=== PATIENT | female | born 1955 | race Caucasian/White ===

== ENCOUNTER 2022-10-11 00:39 | Inpatient (IN) | payer MEDICARE, SELFPAY ==
[2022-10-11] VITALS (27 sets, daily range): BP systolic 90–158; BP diastolic 53–99; PULSE 70–93; RESP 12–22; TEMP 36.1–37.7; O2SAT 90–98; BMI 25.8; BMI 27.1
--- NOTE | 2022-10-11 00:43 | XRR_ITS ---
PROCEDURE INFORMATION: Exam: XR Left Hip Exam date and time: 10/11/2022 1:48 AM Age: 67 years old Clinical indication: Injury or trauma; Blunt trauma (contusions or hematomas); Patient HX: Fall this a. M. C/O left hip pain. TECHNIQUE: Imaging protocol: Radiologic exam of the Left hip. Views: 2 or 3 views hip with pelvis when performed. COMPARISON: No relevant prior studies available. FINDINGS: Bones/joints: There is an acute transverse impacted fracture of the left femoral neck. Soft tissues: Unremarkable. XR/XR hip LT 2-3V wo/w pel* [id number] IMPRESSION: Acute impacted transverse fracture of left femoral neck.
--- NOTE | 2022-10-11 00:50 | ED_ITS ---
HPI - Fall General: Chief Complaint: Fall Stated Complaint: FALL Time Seen by Provider: 10/11/22 00:43 Source: patient and EMS Mode of arrival: EMS Limitations: no limitations History of Present Illness: 67-year-old female who is here by EMS after a fall she states she was walking backwards fell on her porch landed on her left hip she states that she has been having left-sided hip pain since then she has not been able to ambulate has pain with movement states her pain currently is an 8 out of 10 denies hitting her head denies hitting her neck Associated symptoms-after fall: Denies abdominal pain, chest pain, headache(s) or neck pain Review of Systems Const: Denies: fever(s), chills, body aches or change in appetite Eyes: Denies: blurry vision or eye discomfort ENMT: Denies: throat pain or dental pain Card: Denies: chest pain Resp: Denies: dyspnea GI: Denies: abdominal pain, nausea, vomiting or diarrhea : Denies: dysuria Musc: Reports: extremity pain; Denies: neck pain or back pain Skin/Breast: Denies: rash Neuro: Denies: headache(s) Psych: Denies: depression Minor/Lymph: Denies: easy bruising All/Imm: Denies: urticaria PFSH ED PFSH: Medical History (Updated 10/11/22 @ 01:39 by Charlotte Florence MD) No pertinent past medical history Social History (Updated 10/11/22 @ 00:51 by Charlotte Florence MD) Substance/Drug Use: never Physical Exam Const: COMMON NORMALS: no acute distress, patient oriented x3 and healthy appearing HENMT: COMMON NORMALS: normocephalic and atraumatic HEAD & SCALP: normocephalic and atraumatic Eye: COMMON NORMALS: Equal, round and reactive pupils present and EOMs intact bilaterally PUPIL: Yes Equal, round and reactive pupils present Neck/C-Spine: COMMON NORMALS: full ROM and supple Chest: COMMONS NORMALS: normal inspection of the chest and normal palpation of entire chest wall Resp: COMMON NORMALS: normal respiratory effort, No retractions, No use of accessory muscles and clear to auscultation bilaterally AUSCULTATION: clear to auscultation bilaterally Cardio: COMMON NORMALS: regular rate, regular rhythm and No murmurs present (Cardio) RATE: regular rate RHYTHM: regular rhythm GI: COMMON NORMALS: Normal to inspection, nondistended, normoactive bowel sounds present, Soft to palpation, non-tender and no masses PALPATION: Yes Soft to palpation Extremity: NARRATIVE EXTREMITY EXAM: Tenderness to left hip distal pulses intact Neuro: COMMON NORMALS: patient oriented x3, moves all extremities and no focal motor deficits Psych: COMMON NORMALS: mental status grossly normal, Normal thought process present and cooperative THOUGHT PROCESS: Normal thought process present Skin: COMMON NORMALS: no rashes or lesions noted and no wounds GENERAL SKIN EXAM: no rashes or lesions noted Course Vital Signs: Vital signs: Vital Signs Temperature 97.0 F L 10/11/22 00:42 Pulse Rate 93 10/11/22 00:42 Respiratory Rate 17 10/11/22 01:05 Blood Pressure 158/92 10/11/22 00:42 Pulse Oximetry 98 10/11/22 01:05 Oxygen Delivery Me thod 10/11/22 00:42 MDM - Fall Medical Decision Making Patient presents with a left hip fracture after a fall. Patient has no other signs of injury spoke to hospitalist Dr. Malcolm who is admitting also spoke to Dr. Bro orthopedics who is consulted. Lab Data : 10/11/22 00:53 10/11/22 00:53 Radiology Impressions Hip/Pelvis X-Ray 10/11/22 00:43 IMPRESSION: Acute impacted transverse fracture of left femoral neck. Chest X-Ray 10/11/22 00:56 IMPRESSION: No acute findings. Laboratory Results WBC 6.1 10^3/uL (4.0-10.0) 10/11/22 00:53 RBC 4.49 10^6/uL (4.1-5.3) 10/11/22 00:53 Hgb 14.7 g/dL (11.5-15.3) 10/11/22 00:53 Hct 43.2 % (37.0-47.0) 10/11/22 00:53 MCV 96.2 fl (81-99) 10/11/22 00:53 MCH 32.7 pg (28.0-34.0) 10/11/22 00:53 MCHC 34.0 g/dL (30.0-36.0) 10/11/22 00:53 RDW 12.6 % (12.1-15.1) 10/11/22 00:53 Plt Count 223 10^3/cmm (130-400) 10/11/22 00:53 MPV 11.7 fL (7.4-10.4) H 10/11/22 00:53 Neut % (Auto) 67.5 % 10/11/22 00:53 Lymph % (Auto) 24.1 % 10/11/22 00:53 [place] % (Auto) 6.7 % 10/11/22 00:53 Eos % (Auto) 0.5 % 10/11/22 00:53 Baso % (Auto) 0.7 % 10/11/22 00:53 Neut # (Auto) 4.11 10^3/uL (1.8-7.7) 10/11/22 00:53 Lymph # (Auto) 1.5 10^3/uL (0.8-4.8) 10/11/22 00:53 [place] # (Auto) 0.4 10^3/uL (0.2-0.9) 10/11/22 00:53 Eos # (Auto) 0.0 10^3/uL (0.0-0.8) 10/11/22 00:53 Baso # (Auto) 0.0 10^3/uL (0.0-0.1) 10/11/22 00:53 Nucleated RBC % (auto) 0 % 10/11/22 00:53 Nucleated RBCs # 0.0 /100WBC 10/11/22 00:53 PT 12.00 SECONDS (12.1-14.9) L 10/11/22 00:53 INR 0.86 (0.8-1.2) 10/11/22 00:53 Sodium 135 mmol/L (136-145) L 10/11/22 00:53 Potassium 3.6 mmol/L (3.5-5.1) 10/11/22 00:53 Chloride 95 mmol/L (98-107) L 10/11/22 00:53 Carbon Dioxide 20 mmol/L (22-29) L 10/11/22 00:53 Anion Gap 23.6 (5-19) H 10/11/22 00:53 BUN 5 mg/dL (8-23) L 10/11/22 00:53 Creatinine 0.8 mg/dL (0.5-0.9) 10/11/22 00:53 GFR Calculation 71.8 mL/min (90-130) L 10/11/22 00:53 Glucose 103 mg/dL (65-115) 10/11/22 00:53 Calculated Osmolality 278 mOsm/kg (285-295) L 10/11/22 00:53 Calcium 9.6 mg/dL (8.5-10.5) 10/11/22 00:53 Total Bilirubin 0.2 mg/dL (0.15-1.2) 10/11/22 00:53 AST 57 U/L (0-32) H 10/11/22 00:53 ALT 38 U/L (0-33) H 10/11/22 00:53 Alkaline Phosphatase 89 U/L (35-105) 10/11/22 00:53 Total Protein 7.4 g/dL (6.6-8.7) 10/11/22 00:53 Albumin 4.7 g/dL (3.5-5.2) 10/11/22 00:53 Globulin 2.7 g/dL (1.3-4.6) 10/11/22 00:53 Discharge Plan Discharge Patient Disposition: Admitted As Inpatient Clinical Impression: Hip fracture Qualifiers: Encounter type: initial encounter Fracture type: closed Laterality: left Qualified Code(s): S72.002A - Fracture of unspecified part of neck of left femur, initial encounter for closed fracture Coding Level of Care Code ED Travel Trailer Components Assembler for Della Fwd Exam Comprehensive
--- NOTE | 2022-10-11 00:56 | XRR_ITS ---
PROCEDURE INFORMATION: Exam: XR Chest Exam date and time: 10/11/2022 2:03 AM Age: 67 years old Clinical indication: Screening exam; Pre-operative exam; Patient HX: Pre op screen for ortho; Additional info: Fall TECHNIQUE: Imaging protocol: Radiologic exam of the chest. Views: 1 view. COMPARISON: No relevant prior studies available. FINDINGS: Lungs: Unremarkable. No consolidation. Pleural spaces: Unremarkable. No pleural effusion. No pneumothorax. Heart/Mediastinum: Unremarkable. No cardiomegaly. Bones/joints: Unremarkable. XR/XR chest 1V portable [id number] IMPRESSION: No acute findings.
[2022-10-11 01:04] LABS: Basophils % 0.7 %; Eosinophils % 0.5 %; Hematocrit 43.2 % (37.0-47.0); Hemoglobin 14.7 g/dL (11.5-15.3); Lymphocytes # 1.5 10^3/uL (0.8-4.8); Lymphocytes % 24.1 %; Mean Corpuscular Hemoglobin 32.7 pg (28.0-34.0); Mean Corpuscular Volume 96.2 fl (81-99); Mean Platelet Volume 11.7 fL (7.4-10.4); Monocytes # 0.4 10^3/uL (0.2-0.9); Monocytes % 6.7 %; Neutrophils # 4.11 10^3/uL (1.8-7.7); Neutrophils % 67.5 %; Nucleated Red Blood Cells % 0 %; Platelet Count 223 10^3/cmm (130-400); Red Blood Count 4.49 10^6/uL (4.1-5.3); Red Cell Distribution Width 12.6 % (12.1-15.1); White Blood Count 6.1 10^3/uL (4.0-10.0)
[2022-10-11] MEDS: HYDROmorphone 1 mg/mL INJ 1 mL IVP ×4 (01:05→23:00)
[2022-10-11] MEDS: sodium chloride 0.9% 1,000 ML 999 ML IV (01:05)
[2022-10-11] MEDS: ondansetron 2 mg/ML SDV 2 mL 4 MG IVP (01:05)
--- NOTE | 2022-10-11 01:07 | ECG_ITS ---
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 Measurements Intervals Roff Rate: 83 P: 16 IL: 115 QRS: 44 QRSD: 90 T: 1 QT: 369 QTc: 434 Interpretive Statements SINUS RHYTHM WITH SHORT IL INTERVAL NONSPECIFIC T-WAVE ABNORMALITY No previous ECG available for comparison Electronically Signed On 10-12-2022 14:06:05 COMMUNICATION CLERK by Ev Johnson M.D. [id number]
[2022-10-11 01:22] LABS: Slide Review Slide Review Perform
[2022-10-11 01:23] LABS: INR 0.86 (0.8-1.2)
[2022-10-11 01:28] LABS: Alanine Aminotransferase 38 U/L (0-33); Albumin Level 4.7 g/dL (3.5-5.2); Alkaline Phosphatase 89 U/L (35-105); Blood Urea Nitrogen 5 mg/dL (8-23); Calcium 9.6 mg/dL (8.5-10.5); Carbon Dioxide 20 mmol/L (22-29); Chloride 95 mmol/L (98-107); Globulin 2.7 g/dL (1.3-4.6); Glomerular Filtration Rate 71.8 mL/min (90-130); Glucose 103 mg/dL (65-115); Osmolality Calculated 278 mOsm/kg (285-295); Sodium 135 mmol/L (136-145); Total Bilirubin 0.2 mg/dL (0.15-1.2); Total Protein 7.4 g/dL (6.6-8.7)
[2022-10-11 01:29] LABS: Anion Gap 23.6 (5-19); Potassium 3.6 mmol/L (3.5-5.1)
[2022-10-11 01:30] LABS: Aspartate Amino Transferase 57 U/L (0-32)
--- NOTE | 2022-10-11 02:41 | PM.HP ---
Providers/Chief Complaint Admitting Physician: Kris Malcolm Primary Care Provider: DOCTOR NOT ON FILE Chief Complaint: FALL History of Present Illness 67-year-old lady with history of HTN, HLD, had some guests over with her at home, had several glasses of wine earlier last night, tripped up on her porch and fell down with resultant left hip pain. In ER she is found to have acute impacted transverse fracture of left femoral neck. She otherwise has been in baseline state of health, she takes simvastatin for cholesterol. She reports noticed her blood pressure has been somewhat more elevated recently. She also takes Xanax but only occasionally in case she gets a panic attack/severe anxiety which she has been taking since her daughter . She drinks about 4-5 alcoholic drinks a day, sometimes every day, but not always. She has never had alcohol withdrawal. Review of Systems Const: Denies: fever(s), chills, body aches or malaise Eyes: Denies: change in vision, eye discomfort or eye redness ENMT: Reports: dry mouth; Denies: throat pain, oral sores or ear or mastoid pain Card: Denies: chest pain, edema, pre-syncope or dyspnea on exertion Resp: Denies: dyspnea, productive cough, change in phlegm color or hemoptysis GI: Denies: abdominal pain, nausea, vomiting, diarrhea, constipation, hematochezia or melena : Denies: flank pain, urinary frequency or hematuria Musc: Reports: joint pain; Denies: back pain, joint swelling or joint redness Skin/Breast: Denies: rash or new lesions Neuro: Denies: headache(s), numbness in extremities, weakness in extremities, dizziness, confusion or seizure-like activity Endo: Denies: polyuria or polydipsia Minor/Lymph: Denies: easy bleeding or tender lymph nodes All/Imm: Denies: urticaria or tongue swelling Medications/Allergies Home Medications Medication Instructions Recorded Confirmed Last Taken Type alprazolam 0.25 mg tablet 0.25 mg PO TID PRN Anxiety 10/11/22 10/11/22 10/11/22 History simvastatin 40 mg tablet 40 mg PO DAILY 10/11/22 10/11/22 10/11/22 History Allergies Allergy/AdvReac Type Severity Reaction Status Date / Time No Known Allergies Allergy Verified 10/11/22 01:50 PFSH Acute PFSH: Medical History (Updated 10/11/22 @ 02:50 by Kris Malcolm MD) Anxiety Grief at loss of child HLD (hyperlipidemia) HTN (hypertension) Surgical History H/O LEEP Family History Father CAD (coronary artery disease) Social History Alcohol intake: current Alcohol intake frequency: 3 or more drinks per day Substance/Drug Use: never Lives independently: Yes Household members: spouse Marital status: Current occupational status: retired Vitals/I&O/Wt Last Vital Signs Temp 97.0 F L 10/11/22 00:42 Pulse 91 10/11/22 02:17 Resp 16 10/11/22 02:17 BP 148/99 10/11/22 02:17 Pulse Ox 94 10/11/22 02:17 O2 Del Method 10/11/22 02:00 10/10/22 10/10/22 10/11/22 14:59 22:59 06:59 Intake Total 1000 / 1000 Balance 1000 / 1000 Weight last 48 hrs Weight 72.575 kg Physical Exam Narrative: accompanies her in the room. Const: COMMON NORMALS: patient oriented x3 and alert GENERAL APPEARANCE: cooperative ORIENTATION/CONSCIOUSNESS: Yes awake HENMT: COMMON NORMALS: oropharynx normal Neck/C-Spine: COMMON NORMALS: no JVD Resp: COMMON NORMALS: normal respiratory effort and clear to auscultation bilaterally AUSCULTATION: clear to auscultation bilaterally Cardio: COMMON NORMALS: no JVD, regular rhythm, S1 normal heart sound present, S2 normal heart sound present and No murmurs present (Cardio) RHYTHM: regular rhythm HEART SOUNDS: S1 normal heart sound present and S2 normal heart sound present GI: COMMON NORMALS: Normal to inspection, nondistended, normoactive bowel sounds present, Soft to palpation and non-tender PALPATION: Yes Soft to palpation Extremity: COMMON NORMALS: no joint enlargement and no pedal edema OTHER: Left hip without swelling, erythema, bruising. Neuro: COMMON NORMALS: patient oriented x3 and moves all extremities SENSORIUM/ORIENTATION: Yes alert Skin: COMMON NORMALS: no rashes or lesions noted GENERAL SKIN EXAM: no rashes or lesions noted Urinary Catheter Management: Mccoy: Cath Placed During This Visit: yes Urinary Catheter Date of Insertion: 10/11/22 Urinary Catheter Time of Insertion: 01:51 Data : 10/11/22 00:53 10/11/22 00:53 A&P Assessment and plan (1) Impacted fracture of left hip: She is worried about displacement of the fracture and about being able to mobilize and so is interested in seeking repair of the left hip fracture, although certainly wishes did not have to do any of it. She otherwise states has been in baseline state of health with hypertension being slightly on the higher side recently. Reports hyperlipidemia, denies other problems. Reports fall was mechanical after tripping on her porch after also having several glasses of wine while having company over at their place. Pending orthopedic assessment. Monitor for alcohol withdrawal. Otherwise would expect average risk with proceeding with surgery. (2) Alcohol intake above recommended sensible limits: She and her state that they are aware that she is over the recommended alcohol intake at 4-5 drinks which she states she has daily, but not always. She is not concerned regarding alcohol withdrawal. He has not concern regarding dependence. He is not ready to cut down. Monitor for alcohol withdrawal. Once she is in better disposition, please discuss risks including avoiding EtOH with benzodiazepines, encourage cutting down. Follow-up. (3) Transaminitis: Suspect secondary to EtOH, follow-up transaminases. (4) Anxiety: She does have episodes of severe anxiety sometimes for which she takes Xanax. She becomes defensive when discussing this, states that she frequently gets asked questions about this, dependence, and that she takes only a small dose and only intermittently, her states she remains will not be taking it , she states I have lost my daughter . This is clearly a difficult subject and currently also difficult time to discuss this. She should follow-up with her primary provider for further assessment management of anxiety, consider follow-up with [facility] specially with persistent/recurrent anxiety, or if there is persistence of grief after loss of her daughter. Please revisit with her, however, once she is in better disposition regarding risks of benzodiazepines and alcohol. Plan HTN HLD Attestations Medical Necessity Statement*: Admission of over 2 midnights anticipated for assessment and management of left hip fracture. Coding Level of Care Code Acute Personal Service Representative for Chg Fwd Diagnoses Impacted fracture of left hip S72.092A Alcohol intake above recommended sensible limits F10.90 Transaminitis R74.01 Anxiety F41.9
[2022-10-11] MEDS: heparin 5,000 unit/mL INJ 1 mL 5000 UNIT SUBCUT (03:25)
[2022-10-11] MEDS: ALPRAZolam 0.5 mg Tablet 0.25 MG PO ×2 (05:40→22:55)
[2022-10-11] MEDS: multivitamin therapeutic Tablet 1 TAB PO (10:34)
[2022-10-11] MEDS: thiamine 100 mg Tablet PO (10:34)
[2022-10-11] MEDS: folic acid 1 mg Tablet PO (10:34)
[2022-10-11] MEDS: atorvastatin 40 mg Tablet 20 MG PO (10:34)
--- NOTE | 2022-10-11 13:47 | PM.CONSULT ---
Providers/Reason For Consult Consulting Physician/Specialty*: Zina Sanchez MD Reason for Consult*: Left femoral neck fracture, transverse, minimally displaced Requesting Physician: Charlotte Florence MD Attending Physician: Rasta Johnson MD Primary Care Provider: DOCTOR NOT ON FILE History of Present Illness History of Present Illness Dionna Yee is a 67 year old female who was in her usual state of health when she tripped on her porch and fell down. She had immediate onset of left hip pain and was unable to weight-bear. She was found to have a transverse left femoral neck fracture. Patient was admitted to the hospital for definitive treatment of her left femoral neck fracture. Review of Systems Const: Denies: fever(s), chills, body aches, change in appetite or malaise Eyes: Denies: change in vision, blurry vision, eye discomfort or eye redness ENMT: Reports: dry mouth; Denies: throat pain, oral sores, dental pain or ear or mastoid pain Card: Denies: chest pain, edema, pre-syncope or dyspnea on exertion Resp: Denies: dyspnea, productive cough, change in phlegm color or hemoptysis GI: Denies: abdominal pain, nausea, vomiting, diarrhea, constipation, hematochezia or melena : Denies: flank pain, dysuria, urinary frequency or hematuria Musc: Reports: extremity pain and joint pain; Denies: neck pain, back pain, joint swelling or joint redness Skin/Breast: Denies: rash or new lesions Neuro: Denies: headache(s), numbness in extremities, weakness in extremities, dizziness, confusion or seizure-like activity Psych: Denies: depression Endo: Denies: polyuria or polydipsia Minor/Lymph: Denies: easy bruising, easy bleeding or tender lymph nodes All/Imm: Denies: urticaria or tongue swelling Medications/Allergies Home Medications Medication Instructions Recorded Confirmed Last Taken Type alprazolam 0.25 mg tablet 0.25 mg PO TID PRN Anxiety 10/11/22 10/11/22 10/11/22 History simvastatin 40 mg tablet 40 mg PO DAILY 10/11/22 10/11/22 10/11/22 History Allergies Allergy/AdvReac Type Severity Reaction Status Date / Time fentanyl AdvReac Unknown Verified 10/11/22 03:11 Current Medications Generic Name Dose Route Start Last Admin Trade Name Freq PRN Reason Stop Dose Admin Alprazolam 0.25 mg 10/11/22 02:49 10/11/22 05:40 Alprazolam 0.5 Mg Tablet PO 0.25 mg TID PRN Administration Anxiety Atorvastatin Calcium 20 mg 10/11/22 09:00 10/11/22 10:34 Atorvastatin 40 Mg Tablet PO 20 mg DAILY BRICE Administration Folic Acid 1 mg 10/11/22 09:00 10/11/22 10:34 Folic Acid 1 Mg Tablet PO 1 mg DAILY BRICE Administration Hydromorphone HCl 1 mg 10/11/22 02:49 10/11/22 10:33 Hydromorphone 1 Mg/Ml Inj 1 Ml IVP 1 mg Q4H PRN Administration PAIN Multivitamins Therapeutic 1 tab 10/11/22 09:00 10/11/22 10:34 Multivitamin Therapeutic Tablet PO 1 tab DAILY BRICE Administration Thiamine Mononitrate 100 mg 10/11/22 09:00 10/11/22 10:34 Thiamine 100 Mg Tablet PO 100 mg DAILY BRICE Administration PFSH Acute PFSH: Medical History (Updated 10/11/22 @ 13:51 by Zina Sanchez MD) Anxiety Grief at loss of child HLD (hyperlipidemia) HTN (hypertension) Surgical History H/O LEEP Family History Father CAD (coronary artery disease) Social History Alcohol intake: current Alcohol intake frequency: 3 or more drinks per day Substance/Drug Use: never Lives independently: Yes Household members: spouse Marital status: Current occupational status: retired Vitals/I&O/Wt Last Vital Signs Temp 98.5 F 10/11/22 11:33 Pulse 90 10/11/22 11:33 Resp 16 10/11/22 11:33 BP 136/84 10/11/22 11:33 Pulse Ox 95 10/11/22 11:33 O2 Del Method 10/11/22 11:33 10/10/22 10/11/22 10/11/22 22:59 06:59 14:59 Intake Total 1000 / 1000 Output Total 1500 / 1500 Balance -500 / -500 Weight last 48 hrs Weight 168 lb Weight 160 lb Physical Exam Const: COMMON NORMALS: no acute distress, average body habitus, patient oriented x3 and alert GENERAL APPEARANCE: cooperative and comfortable ORIENTATION/CONSCIOUSNESS: Yes awake HENMT: COMMON NORMALS: normocephalic and atraumatic HEAD & SCALP: normocephalic and atraumatic Eye: GENERAL EYE: appearance normal, both eyes and all related structures Chest: COMMONS NORMALS: normal inspection of the chest Resp: COMMON NORMALS: normal respiratory effort EFFORT & INSPECTION: Yes able to speak in complete sentences and Yes symmetric chest movement Extremity: LEFT LOWER EXTREMITY: Yes hip joint Left hip: Yes inspection (No ecchymosis.), Yes ROM (Not evaluated secondary to fracture) and Yes neurovascular exam (Intact distally) Neuro: COMMON NORMALS: patient oriented x3 SENSORIUM/ORIENTATION: Yes alert Psych: COMMON NORMALS: mental status grossly normal APPEARANCE: Yes grossly normal ATTITUDE: Yes calm and Yes engaged ATTENTION/CONCENTRATION: Yes attention grossly intact Skin: COMMON NORMALS: no rashes or lesions noted GENERAL SKIN EXAM: no rashes or lesions noted Urinary Catheter Management: Mccoy: Cath Placed During This Visit: yes Reason for Continuing Indwelling Catheter: Perioperative Use in Selected Surgeries Urinary Catheter Date of Insertion: 10/11/22 Urinary Catheter Time of Insertion: 01:51 Data : 10/11/22 00:53 10/11/22 00:53 Xray Ortho: My impression: I have personally reviewed and interpreted the patient's x-ray studies of the left hip. There is a transverse femoral neck fracture with displacement and angulation. Displacement is minimal. A&P Assessment and plan (1) Fracture of femoral neck, left: Patient fell onto her left hip suffering the above fracture. She was in her usual state of health at home, entertaining, when she fell onto her porch. She had no other reason for her fall. After evaluation of x-ray images, the patient was advised that a bipolar hip arthroplasty is the recommended treatment for this fracture. Risks and complications are discussed with her and her . They are agreeable to bipolar hip arthroplasty. They understand the other option of cannulated screws, but I am not recommending these secondary to the findings on imaging studies. Qualifiers: Encounter type: initial encounter Fracture type: closed Qualified Code(s): S72.002A - Fracture of unspecified part of neck of left femur, initial encounter for closed fracture Consult Attestations Medical Necessity Statement: Patient admitted for definitive treatment of left femoral neck fracture. Coding Level of Care Code Acute Phlebotomy Manager for [facility] Diagnoses Fracture of femoral neck, left S72.002A Encounter type: initial encounter Fracture type: closed
[2022-10-11] MEDS: HYDROmorphone 1 mg/mL INJ 1 mL 0.5 MG IVP (14:29)
[2022-10-11] MEDS: sodium chloride 0.9% 1,000 ML 30 ML IV (14:29)
[2022-10-11] MEDS: CELEcoxib 200 mg Capsule 400 MG PO (14:46)
[2022-10-11] MEDS: acetaminophen 1,000 MG/100 ML PIGGYBACK 400 MG IV ×2 (14:48→22:53)
--- NOTE | 2022-10-11 15:03 | PM.PN ---
Subjective Subjective: Patient was seen and examined this morning, was complaining of lt lower extremity pain , just received pain medication. Medications: Medication Review Details: Generic Name Dose Route Start Last Admin Trade Name Donnie PRN Reason Stop Dose Admin Alprazolam 0.25 mg 10/11/22 02:49 10/11/22 05:40 Alprazolam 0.5 M g Tablet PO 0.25 mg TID PRN Administration Anxiety Atorvastatin Calci um 20 mg 10/11/22 09:00 10/11/22 10:34 Atorvastatin 40 Mg Tablet PO 20 mg DAILY BRICE Administration Folic Acid 1 mg 10/11/22 09:00 10/11/22 10:34 Folic Acid 1 Mg Tablet PO 1 mg DAILY BRICE Administration Hydromorphone HCl 1 mg 10/11/22 02:49 10/11/22 10:33 Hydromorphone 1 Mg/Ml Inj 1 Ml IVP 1 mg Q4H PRN Administration PAIN Sodium Chloride 1,000 mls @ 30 ml s/hr 10/11/22 14:15 10/11/22 14:29 Sodium Chloride 0.9% IV 10/12/22 14:14 30 mls/hr .Q24H BRICE Administration Multivitamins Ther apeutic 1 tab 10/11/22 09:00 10/11/22 10:34 Multivitamin The rapeutic Tablet PO 1 tab DAILY BRICE Administration Thiamine Mononitra te 100 mg 10/11/22 09:00 10/11/22 10:34 Thiamine 100 Mg Tablet PO 100 mg DAILY BRICE Administration Vitals/I&O/Wt Last Vital Signs Temp 99.9 F H 10/11/22 14:13 Pulse 86 10/11/22 14:13 Resp 18 10/11/22 14:13 BP 141/94 10/11/22 14:13 Pulse Ox 95 10/11/22 14:13 O2 Del Method 10/11/22 14:13 10/11/22 10/11/22 10/11/22 06:59 14:59 22:59 Intake Total 1000 / 1000 Output Total 1500 / 1500 800 / 800 Balance -500 / -500 -800 / -800 Weight last 48 hrs Weight 76.204 kg Weight 72.575 kg Physical Exam Resp: COMMON NORMALS: normal respiratory effort, No retractions, No use of accessory muscles and clear to auscultation bilaterally EFFORT & INSPECTION: Yes symmetric chest movement AUSCULTATION: clear to auscultation bilaterally Cardio: COMMON NORMALS: regular rate, regular rhythm, S1 normal heart sound present, S2 normal heart sound present, No gallops present (Cardio), No murmurs present (Cardio), No rub (Cardio) and Peripheral pulses 2+ throughout RATE: regular rate RHYTHM: regular rhythm HEART SOUNDS: S1 normal heart sound present and S2 normal heart sound present PERIPHERAL PULSES: Peripheral pulses 2+ throughout GI: COMMON NORMALS: Normal to inspection, nondistended, normoactive bowel sounds present, Soft to palpation, non-tender, No hepatosplenomegaly present and no masses AUSCULTATION: Yes normoactive bowel sounds PALPATION: Yes Soft to palpation and Yes No hepatosplenomegaly present RECTAL EXAM: deferred Extremity: COMMON NORMALS: no clubbing, cyanosis or edema and no pedal edema Urinary Catheter Management: Mccoy: Cath Placed During This Visit: yes Reason for Continuing Indwelling Catheter: Perioperative Use in Selected Surgeries Urinary Catheter Date of Insertion: 10/11/22 Urinary Catheter Time of Insertion: 01:51 Data : 10/11/22 00:53 10/11/22 00:53 A&P Assessment and plan (1) Impacted fracture of left hip: She is worried about displacement of the fracture and about being able to mobilize and so is interested in seeking repair of the left hip fracture, although certainly wishes did not have to do any of it. She otherwise states has been in baseline state of health with hypertension being slightly on the higher side recently. Reports hyperlipidemia, denies other problems. Reports fall was mechanical after tripping on her porch after also having several glasses of wine while having company over at their place. Pending orthopedic assessment. Monitor for alcohol withdrawal. Otherwise would expect average risk with proceeding with surgery. (2) Alcohol intake above recommended sensible limits: She and her state that they are aware that she is over the recommended alcohol intake at 4-5 drinks which she states she has daily, but not always. She is not concerned regarding alcohol withdrawal. He has not concern regarding dependence. He is not ready to cut down. Monitor for alcohol withdrawal. Once she is in better disposition, please discuss risks including avoiding EtOH with benzodiazepines, encourage cutting down. Follow-up. (3) Transaminitis: Suspect secondary to EtOH, follow-up transaminases. (4) Anxiety: She does have episodes of severe anxiety sometimes for which she takes Xanax. She becomes defensive when discussing this, states that she frequently gets asked questions about this, dependence, and that she takes only a small dose and only intermittently, her states she remains will not be taking it , she states I have lost my daughter . This is clearly a difficult subject and currently also difficult time to discuss this. She should follow-up with her primary provider for further assessment management of anxiety, consider follow-up with [facility] specially with persistent/recurrent anxiety, or if there is persistence of grief after loss of her daughter. Please revisit with her, however, once she is in better disposition regarding risks of benzodiazepines and alcohol. Plan HTN HLD Attestations Medical Necessity Statement*: Patient needs to be in hospital for the management of lt hip fracture. Coding Level of Care Code Acute [employer] Messenger for Della Garrett Diagnoses Impacted fracture of left hip S72.092A Alcohol intake above recommended sensible limits F10.90 Transaminitis R74.01 Anxiety F41.9
[2022-10-11] MEDS: midazolam 1 mg/mL INJ 2 mL 2 MG IVP (15:04)
--- NOTE | 2022-10-11 15:07 | ANES.PREANE2 ---
Pre-Anesthetic Assessment Height/Weight: Height 1.68 m Weight 76.204 kg Temp Pulse Resp BP Pulse Ox O2 Del Method 99.9 F H 86 18 141/94 95 10/11/22 14:13 10/11/22 14:13 10/11/22 14:13 10/11/22 14:13 10/11/22 14:13 10/11/22 14:13 Preop Diagnosis: Impacted left subcapital hip fracture Operation Date: 10/11/22 16:20 Proposed Procedures p Hemiarthroplasty Hip(Left) - Zina Sanchez MD Familial anesthetic complications: none Was Beta Felipe taken within 24 hours: N/A Was Clonidine taken within 24 hours: N/A Last intake: Intake Last Liquid Date 10/10/22 Last Liquid Time 22:00 Last Solid Date 10/10/22 Last Solid Time 22:00 Social Alcohol and Tobacco Exam alert, oriented x 3, clear to auscultation bilaterally and regular rate & rhythm Airway Submandibular: within normal limits Cervical ROM: within normal limits Mallampati: Class II Dentition: chipped Metabolic Hyperlipidemia Neuropsych Anxiety Anesthetic Plan ASA status: 3 Anesthesia: Regional (specify below) (SAB) Medications/Allergies Home Medications Medication Instructions Recorded Confirmed Last Taken Type alprazolam 0.25 mg tablet 0.25 mg PO TID PRN Anxiety 10/11/22 10/11/22 10/11/22 History simvastatin 40 mg tablet 40 mg PO DAILY 10/11/22 10/11/22 10/11/22 History Allergies Allergy/AdvReac Type Severity Reaction Status Date / Time fentanyl AdvReac Unknown Verified 10/11/22 03:11 Current Medications Generic Name Dose Route Start Last Admin Trade Name Donnie PRN Reason Stop Dose Admin Alprazolam 0.25 mg 10/11/22 02:49 10/11/22 05:40 Alprazolam 0.5 Mg Tablet PO 0.25 mg TID PRN Administration Anxiety Atorvastatin Calcium 20 mg 10/11/22 09:00 10/11/22 10:34 Atorvastatin 40 Mg Tablet PO 20 mg DAILY BRICE Administration Folic Acid 1 mg 10/11/22 09:00 10/11/22 10:34 Folic Acid 1 Mg Tablet PO 1 mg DAILY BRICE Administration Hydromorphone HCl 1 mg 10/11/22 02:49 10/11/22 10:33 Hydromorphone 1 Mg/Ml Inj 1 Ml IVP 1 mg Q4H PRN Administration PAIN Sodium Chloride 1,000 mls @ 30 mls/hr 10/11/22 14:15 10/11/22 14:29 Sodium Chloride 0.9% IV 10/12/22 14:14 30 mls/hr .Q24H BRICE Administration Midazolam HCl 2 mg 10/11/22 14:08 10/11/22 15:04 Midazolam 1 Mg/Ml Inj 2 Ml IVP 1 mg Q5M PRN Administration Preop Anxiety Multivitamins Therapeutic 1 tab 10/11/22 09:00 10/11/22 10:34 Multivitamin Therapeutic Tablet PO 1 tab DAILY BRICE Administration Thiamine Mononitrate 100 mg 10/11/22 09:00 10/11/22 10:34 Thiamine 100 Mg Tablet PO 100 mg DAILY BRICE Administration PFS Anesthesia Medical History (Updated 10/11/22 @ 13:51 by Zina Sanchez MD) Anxiety Grief at loss of child HLD (hyperlipidemia) HTN (hypertension) Surgical History H/O LEEP Family History Father CAD (coronary artery disease) Social History Alcohol intake: current Alcohol intake frequency: 3 or more drinks per day Substance/Drug Use: never Lives independently: Yes Household members: spouse Marital status: Current occupational status: retired Data Anesthesia : 10/11/22 00:53 10/11/22 00:53 Short CBC 10/11/22 Range/Units 00:53 WBC 6.1 (4.0-10.0) 10^3/uL Hgb 14.7 (11.5-15.3) g/dL Hct 43.2 (37.0-47.0) % MCV 96.2 (81-99) fl Plt Count 223 (130-400) 10^3/cmm Neut % (Auto) 67.5 % Neut # (Auto) 4.11 (1.8-7.7) 10^3/uL BMP 10/11/22 00:53 Sodium 135 L Potassium 3.6 Chloride 95 L Carbon Dioxide 20 L BUN 5 L Creatinine 0.8 Glucose 103 Calcium 9.6 Liver Function 10/11/22 Range/Units 00:53 Total Bilirubin 0.2 (0.15-1.2) mg/dL AST 57 H (0-32) U/L ALT 38 H (0-33) U/L Alkaline Phosphatase 89 (35-105) U/L Albumin 4.7 (3.5-5.2) g/dL Coags 10/11/22 00:53 PT 12.00 L INR 0.86 Cardiac Studies: No Data to Display
[2022-10-11] MEDS: ceFAZolin 2,000 MG in sodium chloride 0.9% (plus) 50 ML 100 MG IV ×2 (15:30→23:05)
[2022-10-11] MEDS: ceFAZolin 1,000 mg SDV 1000 MG IRRIGATION (16:08)
[2022-10-11] MEDS: vancomycin 1,000 MG SDV 1000 MG XX (16:22)
--- NOTE | 2022-10-11 17:14 | XRR_ITS ---
PROCEDURE INFORMATION: Exam: XR Pelvis Exam date and time: 10/11/2022 6:28 PM Age: 67 years old Clinical indication: Injury or trauma; Other: Post op; Fracture of pelvis & hip; Left; Traumatic fracture; Neck of femur; Closed fracture; Prior surgery; Surgery date: Post-operative (0-2 days); Additional info: Status post bipolar hip arthroplasty, low ap pelvis TECHNIQUE: Imaging protocol: Radiologic exam of the pelvis. Views: 1 or 2 view. COMPARISON: CR XR hip LT 2-3V wo/w pel* [id number] 10/11/2022 1:48 AM FINDINGS: Tubes, catheters and devices: There is left hip replacement with prosthetic components in anatomic alignment without evidence of fracture or loosening. Bones/joints: No pelvic fracture is identified. Soft tissues: Unremarkable. XR/XR pelvis 1-2V* [id number] IMPRESSION: Left hip replacement in satisfactory position.
--- NOTE | 2022-10-11 17:22 | P.OP_ITS ---
Operative Report Date of procedure: October 11, 2022 Pre-op diagnosis: Impacted left femoral neck hip fracture Post-op diagnosis: Impacted left femoral neck hip fracture Post-op findings: Comminuted left femoral neck fracture with comminution of the femoral head as well Procedure done: Left bipolar hip arthroplasty Implants: Fl[place] hip system with a size 5 Accolade II 127 degree neck angle hip stem with a universal head bipolar component size 47 mm outer diameter by 28 mm inner diameter and a femoral head with a 28 mm inner diameter by +0 mm femoral offset Specimens removed/disposition: Femoral head, disposed of Pathology: none sent Surgeon: Zina Sanchez 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 It was stable at 90 degrees of flexion with nearly 90 degrees of internal rotation and with 30 degrees of adduction. The hip was also stable to toe hang. Leg lengths appeared equal. Condition: stable Disposition: PACU (Then return to floor for postoperative rehabilitation and pain management) Brief History: Dionna Yee is a 67 year old female who was in her usual state of health when she tripped on her porch and fell down.? She had immediate onset of left hip pain and was unable to weight-bear.? She was found to have a transverse left femoral neck fracture.? Patient was admitted to the hospital for definitive treatment of her left femoral neck fracture. Patient was undertaken with the family regarding appropriate treatment. We all agreed bipolar was the appropriate prosthesis, and this was scheduled for the patient. Consents were signed and risks and complications were discussed preoperatively. The hip was marked. Questions were answered. Procedure: Patient was brought to the operating theater.? She was transferred to the operating room table.? The patient underwent spinal anesthesia with MAC, ASA 3.? Following administration of adequate anesthesia, the patient was placed in full lateral position and held in position with a pegboard.? The patient's left lower extremity was then prepped and draped in usual fashion utilizing DuraPrep.? It was draped free.? Following prepping and draping, a surgical pause was performed. At the time of surgical pause, we identified the site and side of surgery.? We also identified the patient and preoperative surgical markings.? Confirmation was made of equipment availability.? Additionally, the patient's preoperative IV antibiotic, Ancef 2 g, was confirmed as being given in a timely fashion and being the appropriate antibiotic.? Following the surgical pause, an incision was made centering over the patient's greater trochanter continuing proximally and distally as necessary to allow access to the hip joint.? Dissection continued through skin and soft tissues using a scalpel, and hemostasis was obtained using electrocautery. The tensor fascia kye was identified and incised longitudinally.? Sciatic nerve was identified and protected throughout the surgical procedure.? A Charnley U retractor was placed after the tensor fascia kye had been incised longitudinally, and the sciatic nerve had been identified.? The piriformis muscle was identified and tagged. Piriformis muscle along with the remaining short external rotators were then incised from the posterior aspect of the hip joint. These were retracted posteriorly. ? The capsule was entered in a T-type fashion with the edges being tagged.? The hip was then dislocated. Following hip dislocation, the femoral head was removed and measured.? A femoral neck osteotomy was accomplished as well. We then evaluated the acetabulum.? Ligamentum was removed.? Prominent labrum was removed as well. Trial femoral heads were then placed to determine appropriate size for the universal head component of the bipolar.? The 47 gave excellent fit and fill.? Therefore this was to be the chosen component.? Initially, we trialed with a size a 46 head, but this was felt to be too small. Following femoral neck osteotomy, the femur was broached, and a size 5 Accolade II was found to have excellent fit and fill. It seated nicely. Therefore, this was used for a trial with a +0 mm neck offset femoral head inside of the 47 mm bipolar component.? With this construct, we had the above noted stabilities under findings. Therefore, trial components were removed after the hip was dislocated.? The size 5 Accolade II 127 degree neck angle hip stem was impacted into position without difficulty and onto this was placed a +0 mm offset by 28 mm outer diameter femoral head inside of the universal head bipolar component size 47 mm outer sigifredo meter by 28 mm inner diameter.? With this construct, we had the above-noted stability.? The stem was noted to seat nicely prior to placement of the femoral head and bipolar construct.? The wound was copiously irrigated with Betadine.? At this time, with all components in appropriate position, the hip was reduced.? Following reduction of the prosthesis once again, we confirmed the stability of the hip.? Leg lengths were also felt to be satisfactory. Being satisfied with the prosthesis, attention was directed to closure.? Closure was accomplished with 0 Vicryl in the capsular tissues.? Piriformis was reattached with 0 Vicryl as well.? Tensor fascia kye was closed with 0 Vicryl in an interrupted fashion.? The subcutaneous tissues were closed with 2-0 Monocryl.? Vancomycin powder and a Gelfoam thrombin mixture was placed into the wound as well.? The skin was closed with 4-0 Monocryl followed by Dermabond, Prineo, and OpSite.? The patient was placed in an abduction pillow.? She was returned the Recovery Room in a satisfactory condition and will be discharged to the floor for postoperative rehabilitation and pain management.? There were no complications. Related Problem List Diagnoses (1) Fracture of femoral neck, left:
--- NOTE | 2022-10-11 17:58 | ANE.PACU2 ---
Inpatient post-anesthesia follow up: Airway intact: Yes Vital signs: Temperature 97 F Pulse Rate 83 Respiratory Rate 16 Blood Pressure 106/65 Pulse Oximetry 92 Oxygen Delivery Me thod Room Air Oxygen Flow Rate Fraction of Inspir ed Oxygen Hydration adequate: Yes Nausea and vomiting: No Pain level: 1 Mental status: Baseline
[2022-10-11] MEDS: calcium carbonate 500 mg Chew Tablet 1000 MG PO (18:49)
[2022-10-11] MEDS: sennosides-docusate Tablet 2 TAB PO (20:31)
[2022-10-11] MEDS: chlorhexidine gluconate 0.12% Btl 473 mL 30 ML MUCOUS MEM (20:32)
[2022-10-12] VITALS (9 sets, daily range): BP systolic 103–130; BP diastolic 66–78; PULSE 71–83; RESP 16–18; TEMP 36.4–36.8; O2SAT 92–99
[2022-10-12 05:35] LABS: Basophils % 0.3 %; Eosinophils # 0.1 10^3/uL (0.0-0.8); Eosinophils % 1.2 %; Hematocrit 37.8 % (37.0-47.0); Hemoglobin 12.1 g/dL (11.5-15.3); Lymphocytes # 1.2 10^3/uL (0.8-4.8); Lymphocytes % 20.5 %; Mean Corpuscular Hemoglobin 32.5 pg (28.0-34.0); Mean Corpuscular Volume 101.6 fl (81-99); Mean Platelet Volume 11.9 fL (7.4-10.4); Monocytes # 0.5 10^3/uL (0.2-0.9); Monocytes % 8.4 %; Neutrophils # 4.02 10^3/uL (1.8-7.7); Neutrophils % 69.3 %; Nucleated Red Blood Cells % 0 %; Platelet Count 151 10^3/cmm (130-400); Red Blood Count 3.72 10^6/uL (4.1-5.3); Red Cell Distribution Width 12.6 % (12.1-15.1); White Blood Count 5.8 10^3/uL (4.0-10.0)
[2022-10-12] MEDS: oxyCODONE 5 mg IR Tab/Cap PO (05:51)
[2022-10-12 05:54] LABS: Alanine Aminotransferase 22 U/L (0-33); Albumin Level 3.3 g/dL (3.5-5.2); Alkaline Phosphatase 73 U/L (35-105); Anion Gap 12.8 (5-19); Aspartate Amino Transferase 31 U/L (0-32); Blood Urea Nitrogen 5 mg/dL (8-23); Calcium 8.7 mg/dL (8.5-10.5); Carbon Dioxide 24 mmol/L (22-29); Chloride 106 mmol/L (98-107); Globulin 2.4 g/dL (1.3-4.6); Glucose 100 mg/dL (65-115); Osmolality Calculated 285 mOsm/kg (285-295); Potassium 3.8 mmol/L (3.5-5.1); Sodium 139 mmol/L (136-145); Total Bilirubin 0.5 mg/dL (0.15-1.2); Total Protein 5.7 g/dL (6.6-8.7)
[2022-10-12] MEDS: acetaminophen 1,000 MG/100 ML PIGGYBACK 400 MG IV (06:18)
[2022-10-12] MEDS: ceFAZolin 2,000 MG in sodium chloride 0.9% (plus) 50 ML 100 MG IV (06:32)
[2022-10-12] MEDS: folic acid 1 mg Tablet PO (08:35)
[2022-10-12] MEDS: iron polysaccharide complex 150 mg Capsule PO (08:35)
[2022-10-12] MEDS: calcium carbonate 500 mg Chew Tablet 1000 MG PO (08:35)
[2022-10-12] MEDS: cholecalciferol (vitamin D3) 1,000 unit Tablet 1000 UNIT PO (08:35)
[2022-10-12] MEDS: aspirin 325 mg EC Tablet PO (08:35)
[2022-10-12] MEDS: sennosides-docusate Tablet 2 TAB PO (08:35)
[2022-10-12] MEDS: CELEcoxib 200 mg Capsule PO (08:35)
[2022-10-12] MEDS: multivitamin therapeutic Tablet 1 TAB PO (08:35)
[2022-10-12] MEDS: thiamine 100 mg Tablet PO (08:36)
[2022-10-12] MEDS: atorvastatin 40 mg Tablet 20 MG PO (08:36)
[2022-10-12] MEDS: mupirocin oint 22 gm 1 APPLIC NASAL (08:37)
[2022-10-12] MEDS: HYDROmorphone 1 mg/mL INJ 1 mL IVP ×2 (08:38→13:17)
--- NOTE | 2022-10-12 10:45 | PM.PN ---
Subjective Subjective: Patient was seen this morning, and she was up in her chair eating breakfast. She is awake and alert, and anticipating discharge to home when appropriate. Medications: Reviewed: Yes Medication Review Details: Generic Name Dose Route Start Last Admin Trade Name Freq PRN Reason Stop Dose Admin Alprazolam 0.25 mg 10/11/22 02:49 10/11/22 05:40 Alprazolam 0.5 M g Tablet PO 0.25 mg TID PRN Administration Anxiety Atorvastatin Calci um 20 mg 10/11/22 09:00 10/11/22 10:34 Atorvastatin 40 Mg Tablet PO 20 mg DAILY BRICE Administration Folic Acid 1 mg 10/11/22 09:00 10/11/22 10:34 Folic Acid 1 Mg Tablet PO 1 mg DAILY BRICE Administration Hydromorphone HCl 1 mg 10/11/22 02:49 10/11/22 10:33 Hydromorphone 1 Mg/Ml Inj 1 Ml IVP 1 mg Q4H PRN Administration PAIN Sodium Chloride 1,000 mls @ 30 ml s/hr 10/11/22 14:15 10/11/22 14:29 Sodium Chloride 0.9% IV 10/12/22 14:14 30 mls/hr .Q24H BRICE Administration Multivitamins Ther apeutic 1 tab 10/11/22 09:00 10/11/22 10:34 Multivitamin The rapeutic Tablet PO 1 tab DAILY BRICE Administration Thiamine Mononitra te 100 mg 10/11/22 09:00 10/11/22 10:34 Thiamine 100 Mg Tablet PO 100 mg DAILY BRICE Administration Vitals/I&O/Wt Last Vital Signs Temp 97.8 F 10/12/22 07:31 Pulse 81 10/12/22 09:49 Resp 18 10/12/22 09:49 BP 114/77 10/12/22 07:31 Pulse Ox 98 10/12/22 09:49 O2 Del Method 10/12/22 09:49 10/11/22 10/12/22 10/12/22 22:59 06:59 14:59 Intake Total 1643.5 / 1643.5 490 / 2133.5 50 / 50 Output Total 425 / 1225 950 / 2175 Balance 1218.5 / 418.5 -460 / -41.5 50 / 50 Weight last 48 hrs Weight 168 lb Weight 160 lb Physical Exam Const: COMMON NORMALS: no acute distress, average body habitus, patient oriented x3 and alert GENERAL APPEARANCE: cooperative and comfortable ORIENTATION/CONSCIOUSNESS: Yes awake HENMT: COMMON NORMALS: normocephalic and atraumatic HEAD & SCALP: normocephalic and atraumatic Eye: GENERAL EYE: appearance normal, both eyes and all related structures Chest: COMMONS NORMALS: normal inspection of the chest Resp: COMMON NORMALS: normal respiratory effort EFFORT & INSPECTION: Yes able to speak in complete sentences and Yes symmetric chest movement Extremity: LEFT LOWER EXTREMITY: Yes hip joint (Dressing is dry and intact.) Left hip: Yes inspection (No drainage, no ecchymosis.), Yes palpation (No tenderness to palpation.), Yes ROM (Not evaluated.) and Yes neurovascular exam (Intact with no evidence of DVT.) Neuro: COMMON NORMALS: patient oriented x3 SENSORIUM/ORIENTATION: Yes alert Psych: COMMON NORMALS: mental status grossly normal APPEARANCE: Yes grossly normal ATTITUDE: Yes calm and Yes engaged ATTENTION/CONCENTRATION: Yes attention grossly intact Skin: COMMON NORMALS: no rashes or lesions noted GENERAL SKIN EXAM: no rashes or lesions noted Urinary Catheter Management: Mccoy: Cath Placed During This Visit: yes, but has since been removed by the nurse Reason for Continuing Indwelling Catheter: Perioperative Use in Selected Surgeries Urinary Catheter Date of Insertion: 10/11/22 Urinary Catheter Time of Insertion: 01:51 Date Urinary Catheter Removed: 10/12/22 Time Urinary Catheter Discontinued: 06:00 Data : 10/12/22 04:29 10/12/22 04:29 A&P Assessment and plan (1) Fracture of femoral neck, left: Patient fell onto her left hip suffering the above fracture. She was in her usual state of health at home, entertaining, when she fell onto her porch. She had no other reason for her fall. Patient underwent bipolar hip arthroplasty yesterday. She is up in a chair today eating her breakfast and is comfortable. Plans were made for discharge home with home health. Pain medications and Celebrex have been ordered. Additionally, the patient will need aspirin daily for DVT prophylaxis over 30 days. Qualifiers: Encounter type: initial encounter Fracture type: closed Qualified Code(s): S72.002A - Fracture of unspecified part of neck of left femur, initial encounter for closed fracture Attestations Medical Necessity Statement*: Ongoing medical care and physical therapy following bipolar hip arthroplasty Coding Level of Care Code Acute Pipe Smoker Machine Operator for g Fwd Diagnoses Fracture of femoral neck, left S72.002A Encounter type: initial encounter Fracture type: closed
--- NOTE | 2022-10-12 11:20 | PM.DCS ---
Discharge Providers Date of Admission: 10/11/22 01:36 Date of Discharge: October 12, 2022 Attending Provider at Admission: Kris Malcolm Attending Provider at Discharge: Rasta Johnson MD Primary Care Provider: DOCTOR NOT ON FILE Diagnoses at Discharge Discharge Diagnosis (1) Fracture of femoral neck, left: Status: Acute Qualifiers: Encounter type: initial encounter Fracture type: closed Qualified Code(s): S72.002A - Fracture of unspecified part of neck of left femur, initial encounter for closed fracture Reason for Visit Reason for Visit: FALL Hospital Course Hospital Course 67-year-old lady with history of HTN, HLD, had some guests over with her at home, had several glasses of wine earlier last night, tripped up on her porch and fell down with resultant left hip pain.? In ER she is found to have acute impacted transverse fracture of left femoral neck s/p Left bipolar hip arthroplasty.She was discharged in stable condition to home. Physical Exam Resp: COMMON NORMALS: normal respiratory effort, No retractions, No use of accessory muscles and clear to auscultation bilaterally EFFORT & INSPECTION: Yes symmetric chest movement AUSCULTATION: clear to auscultation bilaterally Cardio: COMMON NORMALS: regular rate, regular rhythm, S1 normal heart sound present, S2 normal heart sound present, No gallops present (Cardio), No murmurs present (Cardio), No rub (Cardio) and Peripheral pulses 2+ throughout RATE: regular rate RHYTHM: regular rhythm HEART SOUNDS: S1 normal heart sound present and S2 normal heart sound present PERIPHERAL PULSES: Peripheral pulses 2+ throughout GI: COMMON NORMALS: Normal to inspection, nondistended, normoactive bowel sounds present, Soft to palpation, non-tender, No hepatosplenomegaly present and no masses AUSCULTATION: Yes normoactive bowel sounds PALPATION: Yes Soft to palpation and Yes No hepatosplenomegaly present RECTAL EXAM: deferred Extremity: COMMON NORMALS: no clubbing, cyanosis or edema and no pedal edema Urinary Catheter Management: Mccoy: Cath Placed During This Visit: yes, but has since been removed by the nurse Reason for Continuing Indwelling Catheter: Perioperative Use in Selected Surgeries Urinary Catheter Date of Insertion: 10/11/22 Urinary Catheter Time of Insertion: 01:51 Date Urinary Catheter Removed: 10/12/22 Time Urinary Catheter Discontinued: 06:00 Discharge Data Studies Completed and Pending Completed Studies During Hospitalization Category Date Time Status XR chest 1V portable [id number] Stat Exams 10/11/22 00:56 Completed XR hip LT 2-3V wo/w pel* [id number] Stat Exams 10/11/22 00:43 Completed XR pelvis 1-2V* [id number] Routine Exams 10/11/22 17:14 Completed Pending at discharge Category Date Time Status Complete Blood Count w/Auto AM LABS Lab 10/13/22 04:00 Ordered Complete Blood Count w/Auto AM LABS Lab 10/14/22 04:00 Ordered Comprehensive Metabolic Panel AM LABS Lab 10/13/22 04:00 Ordered Comprehensive Metabolic Panel AM LABS Lab 10/14/22 04:00 Ordered Radiology Impressions Hip/Pelvis X-Ray 10/11/22 00:43 IMPRESSION: Acute impacted transverse fracture of left femoral neck. Chest X-Ray 10/11/22 00:56 IMPRESSION: No acute findings. Pelvis X-Ray 10/11/22 17:14 IMPRESSION: Left hip replacement in satisfactory position. Laboratory Results WBC 5.8 10^3/uL (4.0-10.0) 10/12/22 04:29 RBC 3.72 10^6/uL (4.1-5.3) L 10/12/22 04:29 Hgb 12.1 g/dL (11.5-15.3) 10/12/22 04:29 Hct 37.8 % (37.0-47.0) 10/12/22 04:29 MCV 101.6 fl (81-99) H D 10/12/22 04:29 MCH 32.5 pg (28.0-34.0) 10/12/22 04:29 MCHC 32.0 g/dL (30.0-36.0) D 10/12/22 04:29 RDW 12.6 % (12.1-15.1) 10/12/22 04:29 Plt Count 151 10^3/cmm (130-400) D 10/12/22 04:29 MPV 11.9 fL (7.4-10.4) H 10/12/22 04:29 Neut % (Auto) 69.3 % 10/12/22 04:29 Lymph % (Auto) 20.5 % 10/12/22 04:29 [place] % (Auto) 8.4 % 10/12/22 04:29 Eos % (Auto) 1.2 % 10/12/22 04:29 Baso % (Auto) 0.3 % 10/12/22 04:29 Neut # (Auto) 4.02 10^3/uL (1.8-7.7) 10/12/22 04:29 Lymph # (Auto) 1.2 10^3/uL (0.8-4.8) 10/12/22 04:29 [place] # (Auto) 0.5 10^3/uL (0.2-0.9) 10/12/22 04:29 Eos # (Auto) 0.1 10^3/uL (0.0-0.8) 10/12/22 04:29 Baso # (Auto) 0.0 10^3/uL (0.0-0.1) 10/12/22 04:29 Nucleated RBC % (auto) 0 % 10/12/22 04:29 Nucleated RBCs # 0.0 /100WBC 10/12/22 04:29 PT 12.00 SECONDS (12.1-14.9) L 10/11/22 00:53 INR 0.86 (0.8-1.2) 10/11/22 00:53 Sodium 139 mmol/L (136-145) 10/12/22 04:29 Potassium 3.8 mmol/L (3.5-5.1) 10/12/22 04:29 Chloride 106 mmol/L (98-107) 10/12/22 04:29 Carbon Dioxide 24 mmol/L (22-29) 10/12/22 04:29 Anion Gap 12.8 (5-19) 10/12/22 04:29 BUN 5 mg/dL (8-23) L 10/12/22 04:29 Creatinine 0.6 mg/dL (0.5-0.9) 10/12/22 04:29 GFR Calculation 100.0 mL/min (90-130) 10/12/22 04:29 Glucose 100 mg/dL (65-115) 10/12/22 04:29 Calculated Osmolality 285 mOsm/kg (285-295) 10/12/22 04:29 Calcium 8.7 mg/dL (8.5-10.5) 10/12/22 04:29 Total Bilirubin 0.5 mg/dL (0.15-1.2) 10/12/22 04:29 AST 31 U/L (0-32) 10/12/22 04:29 ALT 22 U/L (0-33) 10/12/22 04:29 Alkaline Phosphatase 73 U/L (35-105) 10/12/22 04:29 Total Protein 5.7 g/dL (6.6-8.7) L 10/12/22 04:29 Albumin 3.3 g/dL (3.5-5.2) L 10/12/22 04:29 Globulin 2.4 g/dL (1.3-4.6) 10/12/22 04:29 Vitals Last Vital Signs Temp 97.8 F 10/12/22 07:31 Pulse 81 10/12/22 09:49 Resp 18 10/12/22 09:49 BP 114/77 10/12/22 07:31 Pulse Ox 98 10/12/22 09:49 O2 Del Method 10/12/22 09:49 Discharge Plan Discharge Patient Disposition: Home Health Service Condition: Stable Prescriptions: New oxycodone 5 mg Tablet 5 mg PO Q4H PRN (Reason: Moderate Pain) 7 Days Qty: 30 0RF acetaminophen 500 mg Tablet 1,000 mg PO Q8H 15 Days Qty: 90 0RF aspirin 325 mg Tablet,Delayed Release (Dr/Ec) 325 mg PO DAILY 30 Days Qty: 30 0RF celecoxib 200 mg Capsule 200 mg PO DAILY 30 Days Qty: 30 0RF No Action simvastatin 40 mg Tablet 40 mg PO DAILY alprazolam 0.25 mg Tablet 0.25 mg PO TID PRN (Reason: Anxiety) Discharge Orders: Discharge Order (Routine); Ordered 10/12/22 Ordered By: Zina Sanchez Other Ambulatory Orders: DME: Walker (Order) Location: None Selected Ordered By: Zina Sanchez Miscellaneous Procedure (Order) Location: None Selected Ordered By: Rasta Johnson Referrals: Zina Sanchez MD [Physician] - 1 month NOT ON FILE,DOCTOR [Primary Care Provider] - Discharge Activity: Increase activity as tolerated, Limit activity as instructed, Use walker/crutches as instructed and As per PT/OT instructions Patient Instructions: Acetaminophen (By mouth), Oxycodone/Acetaminophen (By mouth), Aspirin (By mouth), Celecoxib (By mouth), Hip Abduction Pillow (DC), ORIF of Hip Fracture (DC), Opioid Safety, Pain Management Activity Restrictions/Additional Instructions: Posterior hip precautions. You may weight-bear as tolerated. Follow-up with me between 3 and 4 weeks. Keep wound covered until the dressing comes off on its own. You may shower. Sutures are under the skin and will not require removal. Aspirin daily for DVT prophylaxis. Discharge Attestations Time Spent in Discharge Care*: less than 30 min Quality Metrics Clinical Quality Measures [ No reported AMI, CVA or VTE this stay] Coding Level of Care Code Acute Chg FW DC note Exam Expanded Problem Focused Diagnoses Fracture of femoral neck, left S72.002A Encounter type: initial encounter Fracture type: closed
== END 2022-10-12 13:30 | disposition home health service (06) | DRG 522 ==
LOC: ER 01:47 → MEDSURG 01:50
PROVIDERS: Specialist; Admitting Provider Internal Medicine; Emergency Provider Emergency Medicine; Visit Provider Internal Medicine
PROC: 0SRS0JZ Replacement of Left Hip Joint, Femoral Surface with Synthetic Substitute, Open Approach (ICD-10-PCS; CPT 27125; principal; 2022-10-11 16:00)
DX: S72.092A Other fracture of head and neck of left femur, initial encounter for closed fracture (principal); W01.0XXA Fall on same level from slipping, tripping and stumbling without subsequent striking against object, initial encounter; I10 Essential (primary) hypertension; E78.5 Hyperlipidemia, unspecified; F10.129 Alcohol abuse with intoxication, unspecified; Y90.9 Presence of alcohol in blood, level not specified; F41.9 Anxiety disorder, unspecified; F43.21 Adjustment disorder with depressed mood
CPT/HCPCS: 36415; 51702; 71045; 72170; 73502; 80053; 85025; 85610; 93005; 96372; 96374; 96375; 97110; 97116; 97161; 97166; 97530; 99285; C1776; J0131; J0690; J1170; J1644; J2250; J2405; J2704; J3370; J3411; J7030

== ENCOUNTER → 2022-10-30 11:02 | Outpatient (BNVA) | payer MEDICARE, SELFPAY | PROVIDERS: Visit Provider Specialist | DX: S72.002D Fracture of unspecified part of neck of left femur, subsequent encounter for closed fracture with routine healing (principal); X58.XXXD Exposure to other specified factors, subsequent encounter; Z98.890 Other specified postprocedural states | CPT/HCPCS: 73502; 99024 ==

== ENCOUNTER → 2022-11-27 10:49 | Outpatient (BNVA) | payer MEDICARE, SELFPAY | PROVIDERS: Visit Provider Specialist | DX: Z98.890 Other specified postprocedural states (principal); S72.002D Fracture of unspecified part of neck of left femur, subsequent encounter for closed fracture with routine healing; X58.XXXD Exposure to other specified factors, subsequent encounter | CPT/HCPCS: 73502; 99024 ==

== ENCOUNTER → 2023-02-03 11:15 | Outpatient (BNVA) | payer MEDICARE, SELFPAY | PROVIDERS: Visit Provider Specialist | DX: S72.012D Unspecified intracapsular fracture of left femur, subsequent encounter for closed fracture with routine healing (principal); X58.XXXD Exposure to other specified factors, subsequent encounter | CPT/HCPCS: 73502; 99213 ==

== ENCOUNTER → 2023-10-13 11:10 | Outpatient (BNVA) | payer MEDICARE, SELFPAY | PROVIDERS: Visit Provider Specialist | DX: Z98.890 Other specified postprocedural states (principal); S72.002A Fracture of unspecified part of neck of left femur, initial encounter for closed fracture; X58.XXXA Exposure to other specified factors, initial encounter; S72.002D Fracture of unspecified part of neck of left femur, subsequent encounter for closed fracture with routine healing; X58.XXXD Exposure to other specified factors, subsequent encounter | CPT/HCPCS: 73502; 99213 ==